=== PATIENT | male | born 1950 | race Caucasian/White ===

== ENCOUNTER → 2018-03-08 | Day surgery (SDC) | payer MEDICARE ==
[2018-03-03 14:45] LABS: BASOPHILS # (AUTO) 0.1 (0.0-0.1); BASOPHILS % 0.8 % (0.0-1.0); EOSINOPHILS # (AUTO) 0.3 (0.0-0.4); EOSINOPHILS % 3.6 % (0.0-6.0); HEMATOCRIT 45.1 % (38.2-49.6); HEMOGLOBIN 15.7 g/dL (14.0-18.0); LYMPHOCYTES % 32.5 % (18.0-39.1); MEAN CORPUSCULAR HEMOGLOBIN 31.3 pg (28-32); MEAN CORPUSCULAR HGB CONC 34.8 g/dL (31-35); MEAN CORPUSCULAR VOLUME 89.8 fL (81-99); MONOCYTES # (AUTO) 0.9 (0.2-0.8); MONOCYTES % 9.8 % (4.4-11.3); NEUTROPHILS # (AUTO) 4.8 (2.1-6.9); NEUTROPHILS % 52.1 % (38.7-80.0); PLATELET COUNT 266 x10e3/uL (140-360); RED BLOOD COUNT 5.02 x10e6/uL (4.3-5.7); RED CELL DISTRIBUTION WIDTH 12.6 % (11.7-14.4)
[~2018-03-08] MED LIST: ASPIRIN81 MG PO; ATORVASTATIN CA20 MG PO; CARVEDILOL6.25 MG PO; FENTANYL CITRATE/PF 100MCG/2 ML INJ ONE; HYOSCYAMINE SULFATE 0.5 MG/ML AMP ONE; LIDOCAINE HCL 2% LOCAL INJ 5 ML SDV VIAL INJ ONE; LISINOPRIL10 MG PO; METFORMIN HCL500 MG PO; MIDAZOLAM HCL 2 MG/2 ML VIAL ONE; MULTIVITAMINS1 EAC7; NIACIN500 M2 PO; PROPOFOL IV EMULSION 10 MG/ML 50 ML VIAL ONE; UBIQUINOL100 MG
--- NOTE | 2018-03-11 16:01 | Operative Report ---
DATE OF PROCEDURE: March 08, 2018 REFERRING PHYSICIAN: Dr. Dee. PROCEDURE PERFORMED: Colonoscopy and polypectomy. INDICATIONS FOR COLONOSCOPY: Colorectal cancer screening, personal history of colon polyps. MEDICATION: Patient was done under MAC. Please see anesthesiologist's note. PROCEDURE: With patient in the left lateral decubitus position, flexible fiberoptic Olympus colonoscope was inserted into the rectum with ease and advanced all the way to the cecum. Mucosa overlying the cecum appeared to be within normal limits. One polyp was hot biopsied from the ascending colon. One polyp was snared from the transverse colon. Diverticular disease was noted in the distal, descending and the sigmoid colon and 2 polyps were hot biopsied from the sigmoid colon. The scope was then retroflexed into the distal rectum and small internal hemorrhoids were noted, none of which was actively bleeding. The scope was then straightened out. The rectosigmoid area as well as the distal rectal area were decompressed. Scope was subsequently withdrawn. Patient tolerated procedure well. IMPRESSION: 1. Ascending colon polyp, hot biopsied. 2. Transverse colon polyp, snared. 3. Diverticulosis. 4. Sigmoid colon polyps times 2 hot biopsied. 5. Internal hemorrhoids, none actively bleeding. PLAN: Follow up histology. Initiate high-fiber, low-fat diet. Initiate high-fiber supplement. Patient might benefit from a followup colonoscopy in 3 years. Job#: [id number] GH cc:GAVIN DEE MD
== END | disposition home or self-care (01) ==
LOC: OR 12:52
PROVIDERS: ATTEND Internal Medicine Gastroenterology
DX: Z12.11 Encounter for screening for malignant neoplasm of colon (principal); D12.3 Benign neoplasm of transverse colon; K57.30 Diverticulosis of large intestine without perforation or abscess without bleeding; K64.8 Other hemorrhoids; K44.9 Diaphragmatic hernia without obstruction or gangrene; I10 Essential (primary) hypertension; E11.9 Type 2 diabetes mellitus without complications; E78.5 Hyperlipidemia, unspecified; Z01.810 Encounter for preprocedural cardiovascular examination; Z01.812 Encounter for preprocedural laboratory examination; Z79.82 Long term (current) use of aspirin; Z68.32 Body mass index [BMI] 32.0-32.9, adult; Z80.0 Family history of malignant neoplasm of digestive organs
CPT/HCPCS: 36415 ×2; 45384; 45385; 82948; 85025; 88305; 93005; J1980; J2001; J2250; 45378

== ENCOUNTER 2021-04-29 08:45 | Emergency (ER) | payer MEDICARE ==
[~2021-04-29] VITALS: Ht 167.6 cm; Wt 99.6 kg
[~2021-04-29 08:45] MED LIST changes: -FENTANYL CITRATE/PF 100MCG/2 ML INJ ONE; -HYOSCYAMINE SULFATE 0.5 MG/ML AMP ONE; -LIDOCAINE HCL 2% LOCAL INJ 5 ML SDV VIAL INJ ONE; -MIDAZOLAM HCL 2 MG/2 ML VIAL ONE; -PROPOFOL IV EMULSION 10 MG/ML 50 ML VIAL ONE
[2021-04-29] MEDS ORDERED: TRICOR48 MG PO (09:15)
[2021-04-29] MEDS ORDERED: HYDROCODON-ACE1 EA11 PO (11:41)
== END 2021-04-29 11:53 | disposition home or self-care (01) ==
LOC: FSED 09:22
DX: S22.41XA Multiple fractures of ribs, right side, initial encounter for closed fracture (principal); I10 Essential (primary) hypertension; E78.5 Hyperlipidemia, unspecified; E11.9 Type 2 diabetes mellitus without complications; Z79.84 Long term (current) use of oral hypoglycemic drugs; Z79.899 Other long term (current) drug therapy; Z79.82 Long term (current) use of aspirin; W06.XXXA Fall from bed, initial encounter; Y92.003 Bedroom of unspecified non-institutional (private) residence as the place of occurrence of the external cause
CPT/HCPCS: 71250; 99283

== ENCOUNTER → 2022-11-06 | Day surgery (SDC) | payer MEDICARE ==
[2022-10-29 10:12] LABS: BASOPHILS # (AUTO) 0.1 (0.0-0.1); BASOPHILS % 1.1 % (0.0-1.0); EOSINOPHILS # (AUTO) 0.3 (0.0-0.4); HEMATOCRIT 43.3 % (38.2-49.6); HEMOGLOBIN 14.8 g/dL (14.0-18.0); LYMPHOCYTES # (AUTO) 2.9 (1.0-3.2); LYMPHOCYTES % 39.8 % (18.0-39.1); MEAN CORPUSCULAR HEMOGLOBIN 31.5 pg (28-32); MEAN CORPUSCULAR HGB CONC 34.2 g/dL (31-35); MEAN CORPUSCULAR VOLUME 92.1 fL (81-99); MONOCYTES # (AUTO) 0.7 (0.2-0.8); NEUTROPHILS # (AUTO) 3.3 (2.1-6.9); NEUTROPHILS % 44.9 % (38.7-80.0); PLATELET COUNT 279 x10e3/uL (140-360); RED CELL DISTRIBUTION WIDTH 12.8 % (11.7-14.4)
[~2022-11-06] MED LIST changes: +CETIRIZINE HCL5 M1 PO; +ETOMIDATE 2 MG/ML 10 ML INJ IV ONE; +FENTANYL CITRATE/PF 100MCG/2 ML INJ ONE; +HYDROCODON-ACE1 EA11 PO; +LIDOCAINE HCL 2% LOCAL INJ 5 ML SDV VIAL INJ ONE; +MONTELUKAST SOD10 MG PO; +POVIDONE IODINE 0.05% 0.05 % ML PO ONE; +PROPOFOL IV EMULSION 10 MG/ML 20 ML VIAL ONE; +TRICOR48 MG PO
[2022-11-06 08:45] VITALS: BP 121/76
== END | disposition home or self-care (01) ==
LOC: OR 05:45
PROVIDERS: ATTEND Internal Medicine Gastroenterology
DX: K63.89 Other specified diseases of intestine (principal); D12.2 Benign neoplasm of ascending colon; K57.30 Diverticulosis of large intestine without perforation or abscess without bleeding; K64.8 Other hemorrhoids; E11.9 Type 2 diabetes mellitus without complications; I10 Essential (primary) hypertension; E78.5 Hyperlipidemia, unspecified; Z01.810 Encounter for preprocedural cardiovascular examination; Z01.812 Encounter for preprocedural laboratory examination; Z79.82 Long term (current) use of aspirin; Z79.84 Long term (current) use of oral hypoglycemic drugs; Z79.899 Other long term (current) drug therapy; Z86.718 Personal history of other venous thrombosis and embolism; Z80.0 Family history of malignant neoplasm of digestive organs
CPT/HCPCS: 36415 ×2; 45380; 82948; 85025; 93005; J2001; J2704; J3010; 45378; 45384

== ENCOUNTER 2022-11-26 20:16 | Inpatient (IN) | payer MEDICARE ==
[~2022-11-26] VITALS: Ht 167.6 cm; Wt 95.3 kg
[~2022-11-26 20:16] MED LIST changes: -ETOMIDATE 2 MG/ML 10 ML INJ IV ONE; -FENTANYL CITRATE/PF 100MCG/2 ML INJ ONE; -LIDOCAINE HCL 2% LOCAL INJ 5 ML SDV VIAL INJ ONE; -MULTIVITAMINS1 EAC7; +MULTIVITAMINS1 EAC7 PO; -POVIDONE IODINE 0.05% 0.05 % ML PO ONE; -PROPOFOL IV EMULSION 10 MG/ML 20 ML VIAL ONE; -UBIQUINOL100 MG; +UBIQUINOL100 MG PO
[2022-11-26] MEDS ORDERED: DIATRIZOATE MEGL/DIATRIZOA SOD 30 ML BTL PO ONE (22:09)
[2022-11-26] MEDS ORDERED: SODIUM CHLORIDE 0.9% 1000ML 1,000 ML IV SCH (22:15)
[2022-11-26] MEDS ORDERED: SODIUM CHLORIDE 0.9% 250ML 250 ML ONE (23:32)
[2022-11-27] VITALS (9 sets, daily range): BP systolic 133–168; BP diastolic 71–94
[2022-11-27] MEDS ORDERED: Morphine 4mg INJECTION 4 MG/ML INJ IV PRN (00:15)
[2022-11-27] MEDS ORDERED: ONDANSETRON HCL INJ 2MG/ML 2ML 2 MG/ML VIAL IV PRN (00:15)
[2022-11-27] MEDS ORDERED: CEFTRIAXONE 1 GM VIAL ONE (00:34)
[2022-11-27] MEDS: SODIUM CHLORIDE 0.9% 1000ML 1,000 ML IV SCH ×2 (02:28→16:36)
[2022-11-27] MEDS ORDERED: LISINOPRIL2.5 MG PO (02:36)
[2022-11-27] MEDS ORDERED: DEXTROSE 50% SYRINGE 50 ML IV PRN (07:45)
[2022-11-27 08:06] LABS: BASOPHILS # (AUTO) 0.1 (0.0-0.1); BASOPHILS % 0.8 % (0.0-1.0); EOSINOPHILS # (AUTO) 0.5 (0.0-0.4); EOSINOPHILS % 4.9 % (0.0-6.0); HEMATOCRIT 44.7 % (38.2-49.6); HEMOGLOBIN 15.1 g/dL (14.0-18.0); LYMPHOCYTES # (AUTO) 2.9 (1.0-3.2); LYMPHOCYTES % 27.6 % (18.0-39.1); MEAN CORPUSCULAR HEMOGLOBIN 31.5 pg (28-32); MEAN CORPUSCULAR HGB CONC 33.8 g/dL (31-35); MEAN CORPUSCULAR VOLUME 93.3 fL (81-99); MONOCYTES # (AUTO) 0.9 (0.2-0.8); MONOCYTES % 8.7 % (4.4-11.3); NEUTROPHILS # (AUTO) 6.1 (2.1-6.9); NEUTROPHILS % 57.2 % (38.7-80.0); PLATELET COUNT 281 x10e3/uL (140-360); RED BLOOD COUNT 4.79 x10e6/uL (4.3-5.7); RED CELL DISTRIBUTION WIDTH 12.9 % (11.7-14.4)
[2022-11-27 08:31] LABS: ALBUMIN 3.8 g/dL (3.5-5.0); ALBUMIN/GLOBULIN RATIO 1.4 (0.8-2.0); ANION GAP 13.9 mmol/L (8-16); CALCIUM 9.2 mg/dL (8.4-10.2); CREATININE, SERUM 1.19 mg/dL (0.72-1.25); POTASSIUM 3.9 mmol/L (3.5-5.1)
[2022-11-27 08:52] LABS: PHOSPHORUS 3.7 MG/DL (2.3-4.7)
[2022-11-27] MEDS: FENOFIBRATE 160MG PO SCH (09:00)
[2022-11-27] MEDS: CARVEDILOL 12.5 MG TAB PO SCH ×2 (10:02→17:28)
[2022-11-27] MEDS: ASPIRIN 81 MG CHEW TAB PO SCH (10:03)
[2022-11-27] MEDS: MULTIVITAMINS/MINERALS TAB PO SCH (10:03)
[2022-11-27] MEDS: INSULIN LISPRO 100 UNIT/1 ML 3ML VIAL SQ SCH ×3 (11:30→21:00)
[2022-11-27 11:58] LABS: CLARITY,URINE CLOUDY (CLEAR); COLOR,URINE YELLOW (YELLOW); KETONES,URINE NEGATIVE (NEGATIVE); LEUKOCYTE ESTERASE ,URINE NEGATIVE (NEGATIVE); NITRITE,URINE NEGATIVE (NEGATIVE); PROTEIN,URINE DIPSTICK NEGATIVE (NEGATIVE); URINE UROBILINOGEN 0.2 mg/dL (0.2 - 1)
[2022-11-27 12:56] LABS: BACTERIA,URINE RARE /HPF; EPITHELIAL CELLS,URINE FEW /LPF; RBC,URINE 0-5 /HPF (0-5); WBC,URINE (MAN) 0-5 /HPF (0-5)
[2022-11-27] MEDS ORDERED: LISINOPRIL 2.5 MG TAB PO SCH (21:00)
[2022-11-28] VITALS: BP 140/84
[2022-11-28 04:00] VITALS: BP 122/77
[2022-11-28] MEDS: SODIUM CHLORIDE 0.9% 1000ML 1,000 ML IV SCH (06:08)
[2022-11-28 06:49] LABS: BASOPHILS # (AUTO) 0.1 (0.0-0.1); BASOPHILS % 0.9 % (0.0-1.0); EOSINOPHILS # (AUTO) 0.5 (0.0-0.4); EOSINOPHILS % 6.1 % (0.0-6.0); HEMATOCRIT 40.8 % (38.2-49.6); HEMOGLOBIN 13.8 g/dL (14.0-18.0); MEAN CORPUSCULAR HEMOGLOBIN 31.9 pg (28-32); MEAN CORPUSCULAR HGB CONC 33.8 g/dL (31-35); MEAN CORPUSCULAR VOLUME 94.2 fL (81-99); MONOCYTES # (AUTO) 0.7 (0.2-0.8); MONOCYTES % 8.5 % (4.4-11.3); NEUTROPHILS # (AUTO) 3.9 (2.1-6.9); NEUTROPHILS % 47.4 % (38.7-80.0); PLATELET COUNT 249 x10e3/uL (140-360); RED BLOOD COUNT 4.33 x10e6/uL (4.3-5.7); RED CELL DISTRIBUTION WIDTH 12.9 % (11.7-14.4)
[2022-11-28] MEDS: INSULIN LISPRO 100 UNIT/1 ML 3ML VIAL SQ SCH ×2 (07:30→11:30)
[2022-11-28 07:35] VITALS: BP 146/85
[2022-11-28 07:38] LABS: ANION GAP 14.6 mmol/L (8-16); CALCIUM 8.7 mg/dL (8.4-10.2); CREATININE, SERUM 1.03 mg/dL (0.72-1.25); POTASSIUM 3.6 mmol/L (3.5-5.1)
[2022-11-28 07:55] LABS: ALBUMIN 3.6 g/dL (3.5-5.0); ALBUMIN/GLOBULIN RATIO 1.5 (0.8-2.0)
[2022-11-28 08:13] VITALS: BP 146/85
[2022-11-28] MEDS: ASPIRIN 81 MG CHEW TAB PO SCH (08:49)
[2022-11-28] MEDS: MULTIVITAMINS/MINERALS TAB PO SCH (08:50)
[2022-11-28] MEDS: FENOFIBRATE 160MG PO SCH (08:50)
[2022-11-28] MEDS: CARVEDILOL 12.5 MG TAB PO SCH ×2 (08:50→16:53)
[2022-11-28 12:26] VITALS: BP 125/72
[2022-11-28] MEDS ORDERED: ONDANSETRON HCL 4 MG ORAL DISINTEGRATING TAB PO PRN (14:00)
[2022-11-28 16:01] VITALS: BP 149/82
[2022-11-28] MEDS ORDERED: CIPRO500 MG PO (20:14)
== END 2022-11-28 17:57 | disposition home or self-care (01) | DRG 690 ==
LOC: FSED 20:49 → ERHOLD 11-27 00:09 → MED/SURG3 11-27 01:47 → OBSVTOIN 11-27 09:15
PROVIDERS: ADMIT Internal Medicine; ATTEND Internal Medicine
DX: N12 Tubulo-interstitial nephritis, not specified as acute or chronic (principal); Z20.822 Contact with and (suspected) exposure to COVID-19; N20.0 Calculus of kidney; N13.30 Unspecified hydronephrosis; N17.9 Acute kidney failure, unspecified; D72.829 Elevated white blood cell count, unspecified; K76.0 Fatty (change of) liver, not elsewhere classified; R74.01 Elevation of levels of liver transaminase levels; E78.5 Hyperlipidemia, unspecified; I11.0 Hypertensive heart disease with heart failure; I50.9 Heart failure, unspecified; E11.9 Type 2 diabetes mellitus without complications; E66.9 Obesity, unspecified; I25.10 Atherosclerotic heart disease of native coronary artery without angina pectoris; Z79.82 Long term (current) use of aspirin; Z68.33 Body mass index [BMI] 33.0-33.9, adult; Z87.891 Personal history of nicotine dependence
CPT/HCPCS: 36415; 74176; 80053; 81001; 81003; 82948; 83735; 83880; 83970; 84100; 84550; 85025; 87086; 88300; 99284; J0696; J7030; J7050; Q9963

== ENCOUNTER → 2023-01-09 | Outpatient (CLI) | payer MEDICARE ==
[~2023-01-09] MED LIST changes: +CIPRO500 MG PO; +LISINOPRIL2.5 MG PO
== END ==
LOC: US 11:34
PROVIDERS: ATTEND Urology
DX: N13.30 Unspecified hydronephrosis (principal)
CPT/HCPCS: 76770; 76857

== ENCOUNTER 2024-09-23 08:46 | Emergency (ER) | payer MEDICARE ==
[~2024-09-23] VITALS: Ht 165.1 cm; Wt 99.4 kg
[~2024-09-23 08:46] MED LIST changes: +BENICAR20 MG PO; +CLEOCIN HCL300 MG PO; +FLOMAX0.4 MG PO; +IBUPROFEN200 MG PO
[2024-09-23] MEDS ORDERED: PROAIR DIGIHAL90 MCG INH (09:24)
[2024-09-23] MEDS ORDERED: ALBUTEROL0.63 MG/3 NEB (09:26)
[2024-09-23] MEDS ORDERED: PREDNISONE50 MG PO (09:27)
[2024-09-23] MEDS ORDERED: AZITHROMYCIN250 MG PO (09:27)
[2024-09-23] MEDS: PREDNISONE 20 MG TAB PO ONE (09:38)
[2024-09-23 09:39] VITALS: PULSE 88; RESP 24
[2024-09-23] MEDS: ALBUTEROL/IPRATROPIUM 3 ML NEB NEB ONE (09:39)
[2024-09-23 10:05] VITALS: PULSE 85; RESP 22; TEMP 98; O2SAT 95
== END 2024-09-23 10:05 | disposition home or self-care (01) ==
LOC: FSED 08:51
DX: R06.02 Shortness of breath (principal); J10.1 Influenza due to other identified influenza virus with other respiratory manifestations; R05.9 Cough, unspecified; R06.2 Wheezing; I10 Essential (primary) hypertension; I50.9 Heart failure, unspecified; I25.10 Atherosclerotic heart disease of native coronary artery without angina pectoris; E78.5 Hyperlipidemia, unspecified; K21.9 Gastro-esophageal reflux disease without esophagitis; Z11.52 Encounter for screening for COVID-19; Z87.442 Personal history of urinary calculi
CPT/HCPCS: 0223U; 87400; 93005; 99283; J7512

== ENCOUNTER 2024-09-26 09:34 | Inpatient (IN) | payer MEDICARE ==
[2024-09-26] VITALS (9 sets, daily range): BP systolic 133–148; BP diastolic 74–80; PULSE 70–78; RESP 20–24; TEMP 97.3–98.6; O2SAT 96–100
[~2024-09-26] VITALS: Ht 165.1 cm; Wt 98.9 kg
[~2024-09-26 09:34] MED LIST changes: +ALBUTEROL0.63 MG/3 NEB; +AZITHROMYCIN250 MG PO; +PREDNISONE50 MG PO; +PROAIR DIGIHAL90 MCG INH
[2024-09-26] MEDS: ALBUTEROL/IPRATROPIUM 3 ML NEB NEB ONE (10:08)
[2024-09-26] MEDS ORDERED: ALBUTEROL SULF 0.083% NEB SOLN 3 ML NEB NEB PRN (11:30)
[2024-09-26] MEDS ORDERED: ENALAPRILAT IV INJ 1.25 MG/ML VIAL IV PRN (11:30)
[2024-09-26] MEDS ORDERED: DIPHENHYDRAMINE HCL 25 MG CAP PO PRN (11:30)
[2024-09-26] MEDS ORDERED: ACETAMINOPHEN 325 MG TAB PO PRN (11:30)
[2024-09-26] MEDS: INSULIN REGULAR, HUMAN 100 UNIT/1 ML SQ SCH (11:30)
[2024-09-26] MEDS ORDERED: DEXTROSE 50% SYRINGE 50 ML IV PRN (11:30)
[2024-09-26] MEDS ORDERED: ONDANSETRON HCL INJ 2MG/ML 2ML 2 MG/ML VIAL IV PRN (11:30)
[2024-09-26] MEDS: LEVOFLOXACIN 500MG/D5W 100ML IV SCH (11:57)
[2024-09-26] MEDS: ASPIRIN 81 MG CHEW TAB PO ONE (11:57)
[2024-09-26] MEDS: ALBUTEROL/IPRATROPIUM 3 ML NEB NEB SCH (13:15)
[2024-09-26] MEDS ORDERED: ATORVASTATIN CA40 MG PO (15:01)
[2024-09-26] MEDS ORDERED: PLAVIX75 MG PO (15:01)
[2024-09-26] MEDS: FAMOTIDINE 20 MG TAB PO SCH (17:45)
[2024-09-26] MEDS: TAMSULOSIN HCL 0.4 MG CAP PO SCH (17:45)
[2024-09-26] MEDS: OSELTAMIVIR PHOSPHATE 75 MG CAP PO SCH (21:28)
[2024-09-26] MEDS: METHYLPREDNISOLONE SOD SUCC 40 MG/ML VIAL 1ML IV SCH (21:29)
[2024-09-26] MEDS: MONTELUKAST SODIUM 10 MG TAB PO SCH (21:29)
[2024-09-27] VITALS (12 sets, daily range): BP systolic 113–156; BP diastolic 62–86; PULSE 69–86; RESP 18–23; TEMP 97.5–98.8; O2SAT 97–100
[2024-09-27 08:10] LABS: BASOPHILS % 0.1 % (0.0-1.0); HEMATOCRIT 41.3 % (38.2-49.6); HEMOGLOBIN 13.8 g/dL (14.0-18.0); LYMPHOCYTES # (AUTO) 1.5 (1.0-3.2); LYMPHOCYTES % 22.4 % (18.0-39.1); MEAN CORPUSCULAR HEMOGLOBIN 30.7 pg (28-32); MEAN CORPUSCULAR HGB CONC 33.4 g/dL (31-35); MEAN CORPUSCULAR VOLUME 91.8 fL (81-99); MONOCYTES # (AUTO) 0.5 (0.2-0.8); MONOCYTES % 7.8 % (4.4-11.3); NEUTROPHILS # (AUTO) 4.7 (2.1-6.9); NEUTROPHILS % 68.7 % (38.7-80.0); PLATELET COUNT 285 x10e3/uL (140-360); RED CELL DISTRIBUTION WIDTH 13.2 % (11.7-14.4); WHITE BLOOD COUNT 6.79 x10e3/uL (4.8-10.8)
[2024-09-27 08:42] LABS: ANION GAP 17.3 mmol/L (8-16); CALCIUM 9.1 mg/dL (8.4-10.2); CREATININE, SERUM 1.19 mg/dL (0.72-1.25); POTASSIUM 4.3 mmol/L (3.5-5.1)
[2024-09-27 08:49] LABS: CREATINE KINASE 95 IU/L (30-200)
[2024-09-27] MEDS: MULTIVITAMINS/MINERALS TAB PO SCH (08:50)
[2024-09-27] MEDS: OLMESARTAN 20 MG TAB PO SCH (08:51)
[2024-09-27] MEDS ORDERED: ACETAMINOPHEN 325 MG TAB PO PRN (09:30)
[2024-09-27] MEDS ORDERED: ONDANSETRON HCL INJ 2MG/ML 2ML 2 MG/ML VIAL IV PRN (09:30)
[2024-09-27 15:30] LABS: TROPONIN I < 0.05 ng/mL (0.0-0.40)
[2024-09-27] MEDS: CLOPIDOGREL BISULFATE 75 MG TAB PO STA (16:24)
[2024-09-27 16:25] LABS: TROPONIN I 0.021 ng/mL (0-0.300)
[2024-09-27] MEDS: ATORVASTATIN 40 MG TAB PO SCH (21:23)
[2024-09-27] MEDS: ASPIRIN 81 MG CHEW TAB PO SCH (21:24)
[2024-09-27] MEDS: METHYLPREDNISOLONE SOD SUCC 40 MG/ML VIAL 1ML IV SCH (21:26)
[2024-09-28] VITALS (10 sets, daily range): BP systolic 124–154; BP diastolic 69–85; PULSE 66–81; RESP 18–23; TEMP 97.7–98.8; O2SAT 96–100
[2024-09-28 06:16] LABS: BASOPHILS % 0.2 % (0.0-1.0); EOSINOPHILS % 0.1 % (0.0-6.0); HEMATOCRIT 44.2 % (38.2-49.6); HEMOGLOBIN 13.9 g/dL (14.0-18.0); LYMPHOCYTES # (AUTO) 2.3 (1.0-3.2); LYMPHOCYTES % 23.3 % (18.0-39.1); MEAN CORPUSCULAR HEMOGLOBIN 30.7 pg (28-32); MEAN CORPUSCULAR HGB CONC 31.4 g/dL (31-35); MEAN CORPUSCULAR VOLUME 97.6 fL (81-99); MONOCYTES # (AUTO) 0.7 (0.2-0.8); MONOCYTES % 6.9 % (4.4-11.3); NEUTROPHILS # (AUTO) 6.6 (2.1-6.9); NEUTROPHILS % 68.2 % (38.7-80.0); PLATELET COUNT 318 x10e3/uL (140-360); RED BLOOD COUNT 4.53 x10e6/uL (4.3-5.7); WHITE BLOOD COUNT 9.69 x10e3/uL (4.8-10.8)
[2024-09-28 06:43] LABS: ANION GAP 16.4 mmol/L (8-16); CALCIUM 9.4 mg/dL (8.4-10.2); CREATININE, SERUM 1.3 mg/dL (0.72-1.25); POTASSIUM 4.4 mmol/L (3.5-5.1)
[2024-09-28] MEDS: FENOFIBRATE 160 MG TAB PO SCH (09:00)
[2024-09-28] MEDS: CLOPIDOGREL BISULFATE 75 MG TAB ONE (09:15)
[2024-09-28] MEDS: CLOPIDOGREL BISULFATE 75 MG TAB PO SCH (09:49)
[2024-09-29] VITALS: BP 129/60; PULSE 77; RESP 20; TEMP 97.9; O2SAT 98
[2024-09-29 00:53] VITALS: PULSE 80; RESP 20; O2SAT 96
[2024-09-29 06:11] VITALS: BP 111/81; PULSE 78; RESP 19; TEMP 97.7; O2SAT 97
[2024-09-29 07:40] VITALS: PULSE 82; RESP 20; O2SAT 97
[2024-09-29] MEDS: PREDNISONE 20 MG TAB PO SCH (08:07)
[2024-09-29 08:45] VITALS: BP 140/73; PULSE 82; RESP 19; TEMP 97.5; O2SAT 100
[2024-09-29 09:03] VITALS: BP 140/73; PULSE 82; RESP 19; TEMP 97.5; O2SAT 100
== END 2024-09-29 10:30 | disposition home or self-care (01) | DRG 193 ==
LOC: FSED 09:40 → ERHOLD 11:27 → MED/SURG3 14:28
PROVIDERS: ADMIT Internal Medicine; ATTEND Internal Medicine
DX: J10.00 Influenza due to other identified influenza virus with unspecified type of pneumonia (principal); J96.01 Acute respiratory failure with hypoxia; J44.0 Chronic obstructive pulmonary disease with (acute) lower respiratory infection; J45.901 Unspecified asthma with (acute) exacerbation; J98.11 Atelectasis; I11.0 Hypertensive heart disease with heart failure; I50.9 Heart failure, unspecified; E11.9 Type 2 diabetes mellitus without complications; I25.10 Atherosclerotic heart disease of native coronary artery without angina pectoris; K21.9 Gastro-esophageal reflux disease without esophagitis; E78.5 Hyperlipidemia, unspecified; N40.0 Benign prostatic hyperplasia without lower urinary tract symptoms; R53.81 Other malaise; Z79.84 Long term (current) use of oral hypoglycemic drugs; Z79.82 Long term (current) use of aspirin; Z79.52 Long term (current) use of systemic steroids; Z95.5 Presence of coronary angioplasty implant and graft; Z87.891 Personal history of nicotine dependence
CPT/HCPCS: 36415; 71250; 80048; 80053; 82550; 82553; 82948; 83036; 83880; 84484; 85025; 93005; 94640; 94760; 94799; 96372; 99284; J1956; J2919; J7512